=== PATIENT | female | born 1965 | race Caucasian/White ===

== ENCOUNTER 2024-03-28 10:24 | Outpatient (OUT) | payer OTHER, SELFPAY ==
--- NOTE | 2024-03-28 10:37 | XR_ITS ---
The [address] [address] Patient Name: DENICE IBARRA MRN: [id number] date: 1965 Sex: F Assigned Patient Location: [facility] Current Patient Location: [facility] Accession/Order Number: [id number] Exam Date: 03/28/2024 10:45 Report Date: 03/28/2024 11:14 At the request of: ZAKIA SNYDER Procedure: XR hip LT min 2V PROCEDURE: XR hip LT min 2V COMPARISON: None. HISTORY: Left Hip Pain FINDINGS: BONES:No acute fracture or dislocation. Mild to moderate osteoarthropathy with marginal osteophyte formation and sclerosis of the acetabulum SOFT TISSUES:Negative. No visible soft tissue swelling. EFFUSION:None visible. OTHER: Negative. XR/XR hip LT min 2V IMPRESSION: Mild to moderate left hip osteoarthritis Electronically authenticated by: NGOZI DIETRICH Date: 03/28/2024 11:14
--- NOTE | 2024-03-28 10:37 | XR_ITS ---
The [address] [address] Patient Name: DENICE IBARRA MRN: [id number] date: 1965 Sex: F Assigned Patient Location: [facility] Current Patient Location: [facility] Accession/Order Number: [id number] Exam Date: 03/28/2024 10:45 Report Date: 03/28/2024 13:02 At the request of: ZAKIA SNYDER Procedure: XR hand RT min 3V PROCEDURE: XR hand RT min 3V COMPARISON: None. HISTORY: Right Hand Pain FINDINGS: BONES:Acute oblique extra-articular fracture diaphysis of the fifth metacarpal. No dislocation. SOFT TISSUES:Negative. No visible soft tissue swelling. EFFUSION:None visible. OTHER: Call results initiated through operations XR/XR hand RT min 3V IMPRESSION: Acute oblique extra-articular fracture diaphysis of the fifth metacarpal Electronically authenticated by: NGOZI DIETRICH Date: 03/28/2024 13:02
--- NOTE | 2024-03-28 10:37 | XR_ITS ---
The [address] [address] Patient Name: DENICE IBARRA MRN: [id number] date: 1965 Sex: F Assigned Patient Location: [facility] Current Patient Location: [facility] Accession/Order Number: [id number] Exam Date: 03/28/2024 10:45 Report Date: 03/28/2024 11:15 At the request of: ZAKIA SNYDER Procedure: XR knee LT 4V PROCEDURE: XR knee LT 4V COMPARISON: None. HISTORY: Left Knee Pain FINDINGS: BONES:No fracture, acute abnormality, or significant arthropathy. SOFT TISSUES:Negative. No visible soft tissue swelling. EFFUSION:None visible. OTHER: Negative. XR/XR knee LT 4V IMPRESSION: No acute radiographic abnormality Electronically authenticated by: NGOZI DIETRICH Date: 03/28/2024 11:15
== END 2024-03-28 10:25 | disposition home or self-care (01) ==
LOC: RAD 10:31
PROVIDERS: Visit Provider Nurse Practitioner Family
DX: M79.641 Pain in right hand (principal); S62.396A Other fracture of fifth metacarpal bone, right hand, initial encounter for closed fracture; M25.562 Pain in left knee; M25.552 Pain in left hip
CPT/HCPCS: 73130; 73502; 73564